=== PATIENT | male | born 1985 | race Two or more races ===

== ENCOUNTER 2024-02-08 22:38 | Emergency (ER) | payer MEDICAID, OTHER ==
[~2024-02-08] VITALS: Ht 170.2 cm; Wt 98.5 kg
[2024-02-09 00:16] LABS: Urine Bacteria None Seen /hpf (None Seen)
[2024-02-09 00:34] LABS: Basophils # (auto) 0.1 10 ^3/uL (0-0.2); Basophils % (auto) 0.8 % (0.0-2.0); Eosinophils # (auto) 0.8 10 ^3/uL (0-0.8); Eosinophils % (auto) 6.4 % (0.0-7.0); Hematocrit 44.3 % (41.0-53.0); Hemoglobin 14.9 g/dL (13.5-17.5); Lymphocytes # (auto) 4.2 10 ^3/uL (0.4-5.4); Lymphocytes % (auto) 34.6 % (10.0-50.0); Mean Corpuscular Hgb Conc. 33.6 g/dL (32.0-36.0); Mean Corpuscular Volume 89.2 fL (80.0-100.0); Monocytes # (auto) 0.8 10 ^3/uL (0-1.3); Monocytes % (auto) 6.9 % (0.0-12.0); Neutrophils # (auto) 6.3 10 ^3/uL (1.6-8.6); Neutrophils % (auto) 51.3 % (37.0-80.0); Nucleated Red Blood Cells % 0.1 %; Platelet Count (auto) 341 10^3/uL (140-450); Red Blood Cells 4.97 10^6/uL (4.5-5.90); Red Cell Distribution Width 13.4 % (11.8-14.3); White Blood Cell 12.3 10^3/uL (4.4-10.8)
[2024-02-09 00:52] LABS: Urine Blood Negative /uL (Negative); Urine Clarity Clear (Clear); Urine Color Yellow (Yellow); Urine Protein, UAD Negative (Negative); Urine Specific Gravity 1.029 (1.001-1.035); Urine Urobilinogen Normal (Negative); Urine WBC <1 /hpf (0 - 3)
[2024-02-09 01:00] LABS: Alanine Aminotransferase 43 U/L (7-40); Albumin 4.6 g/dL (3.2-4.8); Alkaline Phosphatase 41 U/L (46-116); Anion Gap 4 (5-15); Aspartate Aminotransferase 23 U/L (13-40); BUN/Creatinine Ratio 11.3 (10.0-20.0); Bilirubin, Total 0.3 mg/dL (0.2-1.0); Blood Urea Nitrogen 12 mg/dL (9-23); Calcium 9.6 mg/dL (8.7-10.4); Carbon Dioxide 28 mmol/L (20-31); Chloride 108 mmol/L (98-107); Glucose 111 mg/dL (74-106); Lipase 44 U/L (12-53); Sodium 140 mmol/L (136-145); Total Protein 6.9 g/dL (5.7-8.2)
[2024-02-09] MEDS ORDERED: SODIUM CHLORIDE 0.9% 1,000 ML IV ONE (02:30)
[2024-02-09 03:22] VITALS: BP 115/79; PULSE 76; RESP 18; TEMP 98.2; O2SAT 96
== END 2024-02-09 03:25 | disposition home or self-care (01) ==
LOC: ER 22:43
DX: R10.9 Unspecified abdominal pain (principal); R16.0 Hepatomegaly, not elsewhere classified
CPT/HCPCS: 36415; 74176; 80053; 81001; 83605; 83690; 85025; 87086

== ENCOUNTER 2024-09-18 01:30 | Emergency (ER) | payer MEDICAID ==
[~2024-09-18] VITALS: Ht 170.2 cm; Wt 71.0 kg
--- NOTE | 2024-09-18 02:06 | ED.PDOC ---
History of Present Illness HPI Comments 38-year-old male with no past medical history and takes no medications now complains of feeling anxious tonight with little bit of lightheadedness and difficulty sleeping and had some tingling sensations to the back of his scalp Chief Complaint: Anxiety Time Seen by MD: 01:36 Allergies: Coded Allergies: NO KNOWN ALLERGIES (Unverified , 09/18/24) Home Meds Active Scripts Trazodone Hcl (Trazodone Hcl) 150 Mg Tab, 1 TAB PO QPM PRN, #60 TAB 1 Refill Prov:ZENIA MENDOZA MD 09/18/24 Information Source: Patient Severity: Moderate Timing: Hours Duration: Since onset Past Medical History PAST MEDICAL HISTORY: Denies Surgical History: Denies all surgeries Social History Smoker: Non-Smoker Alcohol: Occasionally Drugs: Denies Drug Use Constitutional: reports: malaise Neurological: reports: dizziness, paresthesia Psychiatric: reports: anxiety, panic disorder, sleepless All Other Systems: Reviewed and Negative Physical Exam General Appearance: Mild Distress HEENT: Normal ENT Inspection, Pharynx Normal, TMs Normal Neck: Full Range of Motion, Non-Tender, Normal, Normal Inspection Respiratory: Chest Non-Tender, Lungs Clear, No Accessory Muscle Use, No Respiratory Distress, Normal Breath Sounds Cardiovascular: No Edema, No JVD, No Murmur, No Gallop, Normal Peripheral Pulses, Regular Rate/Rhythm Breast Exam: Deferred Gastrointestinal: No Organomegaly, Non Tender, No Pulsatile Mass, Normal Bowel Sounds, Soft Genitalia: Deferred Pelvic: Deferred Rectal: Deferred Extremities: No calf tenderness, Normal capillary refill, Normal inspection, Normal range of motion, Non-tender, No pedal edema Musculoskeletal : Apperance: Normal Neurologic: Other (Anxious affect) Cerebellar Function: Normal Reflexes: Normal Skin: Dry, Normal Color, Warm Lymphatic: No Adenopathy Was a procedure done? Was a procedure done?: No EKG EKG : [place]: Normal Cardiac Rhythm: NSR Block: None Hypertrophy: None ST: Normal Differential Dx Considerations may include: Differential diagnosis includes but is not limited to: encephalitis, encephalopathy, toxic overdose, traumatic injury, infectious process, hypovolemia and others X-Ray, Labs, Meds, VS Vital Signs Date Time Temp Pulse Resp B/P (MAP) Pulse Ox O2 Delivery O2 Flow Rate FiO2 09/18/24 02:25 98.9 75 20 127/91 (103) 98 98.9 09/18/24 02:25 75 20 98 Room Air* 0 21 09/18/24 02:06 70 09/18/24 01:49 98.9 75 20 127/91 (103) 98 98.9 Lab Test 09/18/24 02:00 Range/Units POC Glucose 127 H 70-106 mg/dl Current Medications Medications (Trade) Dose Ordered Sig/Cristal Route Start Time Stop Time Status Last Admin Lorazepam (Ativan Tablet) 1 mg ONCE ONCE PO 09/18/24 02:00 09/18/24 02:01 DC 09/18/24 02:09 Time of 1ST Reevaluation: 02:05 Reevaluation 1ST: Unchanged Patient Education/Counseling: Diagnosis, Treatment Family Education/Counseling: No Family Present Departure 1 Departure Time of Disposition: 02:31 Impression: Primary Impression: Insomnia Additional Impressions: Light headedness Paresthesia Disposition: 01 HOME / SELF CARE / HOMELESS Condition: Stable e-Prescriptions Trazodone Hcl (Trazodone Hcl) 150 Mg Tab 1 TAB PO QPM PRN, #60 TAB 1 Refill Prov: ZENIA MENDOZA MD 09/18/24 Discharged With: Self Critical Care Note Critical Care Time?: No Stability Stability form required: No Heart Score Heart Score: Heart Score Response (Comments) Value History N/A 0 EKG N/A 0 Age N/A 0 Risk Factors N/A 0 Troponin N/A 0 Total 0 ZENIA MENDOZA MD Sep 18, 2024 02:06
--- NOTE | 2024-09-18 02:07 | ECG ---
[facility] Test Date: 2024-09-18 Test Time: 02:06:02 Pat Name: CARLENE VILLASENOR Department: ED Room: Gender: M Manager Mass: JIM : 1985 Requested By: ZENIA MENDOZA Order Number: [id number] Reading MD: Brandt Calloway Measurements Intervals [place] Rate: 70 P: 38 UT: 164 QRS: 73 QRSD: 108 T: 27 QT: 398 QTc: 430 Interpretive Statements Sinus rhythm Electronically Signed On 09-18-2024 15:00:15 PDT by Brandt Calloway Please click the below link to view image of tracing.
[2024-09-18] MEDS: LORazepam 0.5 MG TAB PO ONE (02:09)
[2024-09-18] MEDS ORDERED: TRAZ1TAB12 PO (02:12)
[2024-09-18 02:25] VITALS: BP 127/91; PULSE 75; RESP 20; TEMP 98.9; O2SAT 98
== END 2024-09-18 02:45 | disposition home or self-care (01) ==
LOC: ER 01:30
DX: G47.00 Insomnia, unspecified (principal); R42 Dizziness and giddiness; R20.2 Paresthesia of skin; F41.9 Anxiety disorder, unspecified
CPT/HCPCS: 82947; 82962; 93005